=== PATIENT | female | born 1980 | race Caucasian/White ===

== ENCOUNTER → 2017-01-13 | Outpatient (CLI) | payer OTHER ==
[~2017-01-13] MED LIST: AMOXIL500 M1 PO; ASPIRIN81 M2 PO; BACTRIM DS TABL1 TA1 PO; CIPRO HC OTIC S10 ML OT; EC-NAPROSYN500 MG PO; EFFEXOR-XR150 MG PO; FLEXERIL10 M1 PO; FLEXERIL10 MG PO; FLONASE 0.05% N16 G1; FLONASE 0.05% N16 GM; FLONASE ALLERG9.9 ML; IBUPROFEN PO; IBUPROFEN800 MG PO; KEFLEX500 M2 PO; LORTAB 5-325 M1 EACH PO; LOVASTATIN20 M1 PO; METFORMIN HCL1000 M1 PO; METOPROLOL TAR100 MG PO; MIRALAX17 GM PO; NAPROSYN-EC500 M1 PO; NAPROXEN PO; NUCYNTA100 MG PO; OMEPRAZOLE20 M1 PO; OMEPRAZOLE40 MG PO; PERCOCET 7.5-31 EACH PO; PHENERGAN PO; REGLAN10 MG PO; RONDEC TABLET1 TAB PO; VICODIN 5/1 TAB 5/50 PO; VICODIN 5/500 T1 TAB PO; VYVANSE40 MG PO; VYVANSE50 MG PO; ZESTORETIC 20/21 TAB PO; ZITHROMAX PO
--- NOTE | ~2017-01-13 | US6 ---
[facility] A Service of [facility] & [facility] RADIOLOGY TEXT RESULTS PATIENT: NADEEN CHO LOCATION: CGUS : 78 UNIT #: [id number] AGE: [address]: FAVIO MONSON APRN SEX: F ORDER DR: [id number] [facility] [address] [facility]. [place], [place] [address] [id number] O MR#: [id number] Acc #: [id number] NAME: NADEEN CHO : 1980 SEX: F STUDY DATE/TIME: 01/13/2017 10:47 UNIT: CGUS ROOM: STUDY DESCRIPTION: US Abdominal Limited Attending Physician: German Monson M.D. Referring Physician: German Monson M.D. Ordering Physician: German Monson M.D. Primary Care Physician: German Monson M.D. MEDICAL IMAGING REPORT This report is preliminary unless electronic signature is present EXAM Right upper quadrant ultrasound 01/13/2017 HISTORY Abnormally elevated liver enzymes on 12/20/2016. FINDINGS The liver demonstrates an increase in echotexture with attenuation of the ultrasound beam characteristic of fatty infiltration. No cystic or solid mass lesions are seen in the liver. The intra and extrahepatic bile ducts are not dilated. The gallbladder is surgically absent as per patient history. The common duct measures 5 mm. The pancreas is poorly visualized due to overlying bowel gas. The right kidney is normal. IMPRESSION 1. Fatty infiltration of the liver. 2. Surgical absence of the gallbladder. 3. Poor visualization of the pancreas due to overlying bowel gas. Dictated by... Edward Mayers M.D. THIS IS AN ELECTRONICALLY VERIFIED REPORT Edward Mayers M.D. at 01/16/2017 8:14 AM Bear TD: 01/13/2017 17:28 JOB #: [id number] MEDICAL IMAGING REPORT COPY
== END | disposition home or self-care (01) ==
LOC: CGUS 09:32
DX: R74.8 Abnormal levels of other serum enzymes (principal); K76.0 Fatty (change of) liver, not elsewhere classified; Z90.49 Acquired absence of other specified parts of digestive tract
CPT/HCPCS: 76705

== ENCOUNTER 2017-02-04 23:55 | Emergency (ER) | payer OTHER ==
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
[~2017-02-04 23:55] MED LIST changes: -ASPIRIN81 M2 PO; -FLONASE 0.05% N16 G1; -LOVASTATIN20 M1 PO; -METFORMIN HCL1000 M1 PO; -METOPROLOL TAR100 MG PO; -VYVANSE50 MG PO; -ZESTORETIC 20/21 TAB PO
== END 2017-02-05 01:56 | disposition home or self-care (01) ==
LOC: CED 23:55
DX: S06.0X9A Concussion with loss of consciousness of unspecified duration, initial encounter (principal); S16.1XXA Strain of muscle, fascia and tendon at neck level, initial encounter; S00.03XA Contusion of scalp, initial encounter; W22.8XXA Striking against or struck by other objects, initial encounter; Y92.512 Supermarket, store or market as the place of occurrence of the external cause; E11.9 Type 2 diabetes mellitus without complications
CPT/HCPCS: 70450; 72125; 84703; 99284

== ENCOUNTER 2017-02-08 04:18 | Observation (INO) | payer OTHER ==
--- NOTE | ~2017-02-08 | EKG ---
PATIENT: NADEEN CHO UNIT #: [id number] Ventricular Rate: 100 BPM Atrial Rate: 100 BPM P-R Interval: 154 ms QRS Duration: 74 ms Q-T Interval: 360 ms QTC Calculation(Bezet): 464 ms P [place]: 41 degrees Calculated R [place]: 29 degrees Calculated T [place]: 33 degrees Diagnosis Line: Normal sinus rhythm Diagnosis Line: Normal ECG Diagnosis Line: When compared with ECG of 03-AUG-2016 19:42, Diagnosis Line: No significant change was found Diagnosis Line: Confirmed by KATRIN ELIZABETH MD ([id number]) on 02/08/2017 Diagnosis Line: 9:20:37 PM INTERPRETING MD: GLENN HALL
--- NOTE | ~2017-02-08 | TH ---
Unit #: [id number] #: [id number] Patient: NADEEN CHO [id number] [address] [address] [id number] I MR#: [id number] NAME: NADEEN CHO : 1980 SEX: F STUDY DATE/TIME: 02/08/2017 UNIT: CEDOF ROOM: 76046 STUDY DESCRIPTION: Stress nuclear Attending Physician: Venessa Keen M.D. Primary Care Physician: German Monson M.D. CARDIOLOGY REPORT EXAM Stress nuclear and ECG. INDICATION Chest pain, inability to exercise. SUMMARY The patient was given Lexiscan intravenously while at rest. Heart rate increased from 99 to 118 and blood pressure decreased 149/89 to 144/73. The patient did not experience any chest pain. There were nonspecific ST changes in the anterolateral leads both at rest and stress with flattening but no diagnostic ST shifts. There were no dysrhythmias or heart block. Tc-99m Cardiolite, 11.44 and 31.8 mCi, was injected at rest and stress respectively. Appropriate views were obtained. FINDINGS Perfusion images demonstrate intestinal artifact both at rest and stress. There is chest wall attenuation artifact slightly more with stress than at rest. Otherwise, perfusion is normal and equivalent between rest and stress. End-diastolic volume is 88 mL. Ejection fraction 75% with no wall motion abnormalities. There is no significant patient motion noted either at rest or stress. There is no significant lung uptake, LV or RV enlargement. Summed stress score is zero. IMPRESSION 1. Myocardial perfusion scan shows no ischemia or infarction. 2. Normal wall motion with excellent ejection fraction. 3. Normal stress ECG with Lexiscan. Dictated by... Mitchel Darling/heidi TD: 02/09/2017 07:22 JOB #: [id number] Unit #: [id number] #: [id number] Patient: NADEEN CHO CARDIOLOGY REPORT Page 1 of 1 X Manuel Abbasi MD CARDIOLOGY REPORT
--- NOTE | ~2017-02-08 | ST ---
Unit #: [id number] #: [id number] Patient: NADEEN CHO [id number] [address] [address] [id number] I MR#: [id number] NAME: NADEEN CHO : 1980 SEX: F STUDY DATE/TIME: 02/08/2017 UNIT: CEDOF ROOM: 02941 STUDY DESCRIPTION: Stress ECG Attending Physician: Venessa Keen M.D. Primary Care Physician: German Monson M.D. CARDIOLOGY REPORT EXAM Stress ECG. FINDINGS Result text under nuclear order number. Please see this order for result text. Dictated by... Mitchel Darling/heidi TD: 02/09/2017 07:35 JOB #: [id number] CARDIOLOGY REPORT Page 1 of 1 X Manuel Abbasi MD CARDIOLOGY REPORT
--- NOTE | ~2017-02-08 | CT23 ---
[facility] A Service of [facility] & [facility] RADIOLOGY TEXT RESULTS PATIENT: NADEEN CHO LOCATION: CEDOF [id number] : 78 UNIT #: [id number] AGE: [address]: Venessa Keen MD SEX: F ORDER DR: [id number] [facility] [address] [facility]. [place], [place] [address] [id number] I MR#: [id number] Acc #: [id number] NAME: NADEEN CHO : 1980 SEX: F STUDY DATE/TIME: 02/08/2017 4:35 UNIT: CEDOF ROOM: 29727 STUDY DESCRIPTION: CT Angio Neck Attending Physician: Venessa Keen M.D. Ordering Physician: Lester Becerra D.O. Primary Care Physician: Adalberto Monson MEDICAL IMAGING REPORT This report is preliminary unless electronic signature is present EXAM CT angiogram neck. FINDINGS Result text under order number [id number]. Please see this order for result text. Dictated by... Daniel Menjivar M.D. THIS IS AN ELECTRONICALLY VERIFIED REPORT Daniel Menjivar M.D. at 02/08/2017 11:22 AM Marie TD: 02/08/2017 09:11 JOB #: [id number] MEDICAL IMAGING REPORT Page 1 of 1 COPY
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
--- NOTE | ~2017-02-08 | US85 ---
[facility] A Service of [facility] RADIOLOGY TEXT RESULTS PATIENT: NADEEN CHO LOCATION: [facility] [address]86-29 : [birth year] UNIT #: [id number] AGE: [address]: Venessa Keen MD SEX: F ORDER DR: [id number] [facility] [address] [place], [place] [address] [id number] I MR#: [id number] Acc #: [id number] NAME: NADEEN CHO : 1980 SEX: F STUDY DATE/TIME: 02/08/2017 9:34 UNIT: C[facility] ROOM: [id number] STUDY DESCRIPTION: LE Veins Unilat or Ltd Stdy Attending Physician: Venessa Keen M.D. Ordering Physician: Venessa Keen M.D. Primary Care Physician: German Monson M.D. MEDICAL IMAGING REPORT This report is preliminary unless electronic signature is present EXAM Right lower extremity venous duplex, 02/08/2017 HISTORY Right lower extremity pain and swelling for 2 years. Evaluate for deep vein thrombosis. TECHNIQUE Venous ultrasound examination of the right lower extremity was performed using grayscale, spectral Doppler and color flow Doppler imaging. FINDINGS The examination is negative. There is no evidence of right lower extremity deep venous thrombus from the groin to the lower calf. Visualized greater saphenous vein is also patent. IMPRESSION Negative examination. No evidence of right lower extremity deep venous thrombosis. Dictated by... Edward Mayers M.D. THIS IS AN ELECTRONICALLY VERIFIED REPORT Edward Mayers M.D. at 02/09/2017 8:10 AM BULL/debra TD: 02/08/2017 11:11 JOB #: [id number] MEDICAL IMAGING REPORT Page 1 of 1 COPY
--- NOTE | ~2017-02-08 | DS ---
Unit #: [id number] #: [id number] Patient: NADEEN CHO [id number] [address] [address] [id number] Kris MR#: [id number] NAME: NADEEN CHO ROOM: 19554 Age: 37 Sex: F Admission Date: 02/08/2017 : 1980 Discharge Date: Attending Physician: Venessa Keen M.D. Primary Care Physician: Adalberto Monson DISCHARGE SUMMARY PRINCIPAL DIAGNOSES 1. Atypical chest pain. 2. Vertigo secondary to recent head trauma. 3. Diabetes mellitus type 2, non-insulin requiring, uncontrolled with pending hemoglobin A1c. 4. Hypertension. 5. Hyperlipidemia. 6. Probable obstructive sleep apnea. 7. Gastroesophageal reflux disease. 8. Fibromyalgia. 9. Morbid obesity. CONSULTANTS None. PROCEDURES 1. Cardiolite stress test which was negative for ischemia. 2. CT angiogram of the head and neck, which was negative for any vertebral dissection or stroke. CLINICAL HISTORY AND HOSPITAL COURSE Ms. Phipps is a nice 37-year-old female, who presented to the emergency department with dizziness and associated chest pain. Please refer to H and P for further details. Serial troponins in the ER were negative. The patient was subsequently placed in observation for further evaluation. The patient underwent Cardiolite stress test, which was negative for ischemia. She had no abnormalities on telemetry and again troponin negative. Based upon history, I suspect her chest pain was perhaps secondary to anxiety which I discussed with her briefly upon admission and this can be followed up again as an outpatient. In regard to the patient's dizziness, she has now had 2 CT scans of the head within a short period, not demonstrating any stroke. I suspect her intermittent vertigo is secondary to some malpositioning which fell on her. This can be followed up again as an outpatient. The patient's other chronic conditions are remained stable. She does have very poorly-controlled diabetes based upon glucose readings in the hospital. However, when I discussed with her adjusting medications i.e. adding medication in addition to her metformin, the patient opted to follow up with her primary care provider and no new medication was given. Unit #: [id number] #: [id number] Patient: NADEEN CHO DISCHARGE CONDITION Stable. DISCHARGE STATUS Discharged to home. DISCHARGE MEDICATIONS Please refer to med rec. There are no additions to patient's home medications. FOLLOWUP The patient will follow up with her primary care provider in 2 weeks. Dictated by... Venessa Keen M.D. CORA/brandon TD: 02/09/2017 01:17 JOB #: [id number] DISCHARGE SUMMARY Page 1 of 1 X Venessa Keen MD X DISCHARGE SUMMARY
[2017-02-08 03:17] LABS: BASOPHIL% 0.7 % (0-2.5); EOSINOPHIL# 0.1 X10e3 (0-0.7); EOSINOPHIL% 2.6 % (0.0-7.0); HEMATOCRIT 36.3 % (35.0-45.0); HEMOGLOBIN 11.6 gm/dL (12.0-16.0); LYMPHOCYTE# 1.5 X10e3 (1.0-3.5); LYMPHOCYTE% 28.1 % (17.0-45.0); MEAN CELL VOLUME 82.9 FL (83-96); MEAN CORPUSCULAR HEMOGLOBIN 26.4 PG (28-34); MEAN CORPUSCULAR HGB CONC 31.9 g/dL (30-36); MEAN PLATELET VOLUME 8.8 FL (6.5-11.5); MONOCYTE# 0.5 X10e3 (0-1.0); MONOCYTE% 9.9 % (3.0-12.0); NEUTROPHIL# 3.1 X10e3 (1.5-7.1); NEUTROPHIL% 58.7 % (40-75); PLATELET COUNT 216 X10e3 (140-420); RED BLOOD COUNT 4.38 X10e (3.90-5.30); RED CELL DISTRIBUTION WIDTH 15.9 % (11.0-15.5); WHITE BLOOD COUNT 5.3 X10e3 (4.0-10.5)
[2017-02-08 03:20] LABS: DIFF IND NO
[2017-02-08 03:23] LABS: POC - CKMB <1.0 ng/mL (0.0-7.9); POC - TROPONIN <0.05 ng/mL (<=0.05)
[2017-02-08 03:41] LABS: ALBUMIN SERUM 3.6 g/dL (3.5-5.0); BILIRUBIN, DIRECT 0.1 mg/dL (0.0-0.2); BILIRUBIN,INDIRECT 0.7 mg/dL (0.0-0.9); BILIRUBIN,TOTAL 0.8 mg/dL (0.2-2.0); BUN/CREATININE RATIO 13.33; CALCIUM SERUM 8.8 mg/dL (8.4-10.2); CREATININE SERUM 0.6 mg/dL (0.6-1.4); GLOM FILT RATE Estimated 114.8 mL/min (>60); PROTEIN TOTAL SERUM 7.3 g/dL (6.0-8.3)
[2017-02-08 05:07] LABS: URINE SOURCE CLEAN CATCH
[2017-02-08 05:10] LABS: POC - CKMB <1.0 ng/mL (0.0-7.9); POC - TROPONIN <0.05 ng/mL (<=0.05)
[2017-02-08 05:33] LABS: URINE APPEARANCE CLEAR; URINE BILIRUBIN NEG (NEG); URINE BLOOD NEG (NEG); URINE COLOR YELLOW; URINE GLUCOSE >1000 MG/DL (NEG); URINE KETONE NEG (NEG); URINE LEUKOCYTE ESTERASE NEG (NEG); URINE NITRATE NEG (NEG); URINE PROTEIN NEG (NEG); URINE SPECIFIC GRAVITY 1.043 (1.003-1.035)
[2017-02-08 05:43] LABS: CULTURE INDICATED? NO
[2017-02-08 05:53] LABS: AMPHETAMINE NEG (NEG); BARBITURATES NEG (NEG); BENZODIAZEPINES NEG (NEG); COCAINE NEG (NEG); MARIJUANA NEG (NEG); OPIATES NEG (NEG); TRICYCLIC ANTIDEPRESSANTS NEG (NEG); U METHADONE NEG (NEG)
[2017-02-08] MEDS ORDERED: OMEPRAZOLE20 M1 PO (06:36)
[2017-02-08] MEDS ORDERED: NAPROSYN-EC500 M1 PO (06:36)
[2017-02-08] MEDS ORDERED: VYVANSE50 MG PO (06:36)
[2017-02-08] MEDS ORDERED: PERCOCET 7.5-31 EACH PO (06:36)
[2017-02-08] MEDS ORDERED: REGLAN10 MG PO (06:36)
[2017-02-08] MEDS ORDERED: ZESTORETIC 20/21 TAB PO (06:37)
[2017-02-08] MEDS ORDERED: MIRALAX17 GM PO (06:37)
[2017-02-08] MEDS ORDERED: METOPROLOL TAR100 MG PO (06:37)
[2017-02-08] MEDS ORDERED: FLONASE 0.05% N16 G1 (06:37)
[2017-02-08] MEDS ORDERED: METFORMIN HCL1000 M1 PO (06:38)
[2017-02-08 07:25] LABS: CHOLESTEROL 173 mg/dL (0-200); HDL CHOLESTEROL 41 mg/dL (35-95); LDL CHOLESTEROL 89 mg/dL (-130); LDL/HDL RATIO 2 RATIO (0-4); TRIGLYCERIDES 213 mg/dL (10-160)
[2017-02-08] MEDS ORDERED: LOVASTATIN20 M1 PO (07:34)
[2017-02-08] MEDS ORDERED: ASPIRIN81 M2 PO (07:34)
== END 2017-02-08 18:25 | disposition home or self-care (01) ==
LOC: CED 04:18 → CEDOF 06:35
PROVIDERS: Emergency Medicine; Internal Medicine
DX: R07.89 Other chest pain (principal); R42 Dizziness and giddiness; E11.65 Type 2 diabetes mellitus with hyperglycemia; Z79.84 Long term (current) use of oral hypoglycemic drugs; I10 Essential (primary) hypertension; E04.1 Nontoxic single thyroid nodule; I65.29 Occlusion and stenosis of unspecified carotid artery; E78.5 Hyperlipidemia, unspecified; K21.9 Gastro-esophageal reflux disease without esophagitis; M79.7 Fibromyalgia; E66.01 Morbid (severe) obesity due to excess calories; R60.0 Localized edema; Z68.42 Body mass index [BMI] 45.0-49.9, adult; K31.84 Gastroparesis; J30.2 Other seasonal allergic rhinitis; H74.90 Unspecified disorder of middle ear and mastoid, unspecified ear; Z79.82 Long term (current) use of aspirin; Z79.899 Other long term (current) drug therapy; Z98.51 Tubal ligation status; Z86.19 Personal history of other infectious and parasitic diseases; Z98.890 Other specified postprocedural states; Z90.49 Acquired absence of other specified parts of digestive tract; Z87.891 Personal history of nicotine dependence; Z82.49 Family history of ischemic heart disease and other diseases of the circulatory system; Z83.3 Family history of diabetes mellitus; Z84.89 Family history of other specified conditions
CPT/HCPCS: 70450; 70496; 70498; 78452; 80048; 80061; 80076; 80307; 81003; 82553; 82947; 83036; 84484; 84703; 85025; 93005; 93017; 93971; 96361; 96374; 96375; 99285; A9500; G0378; J1100; J1815; J2270; J2405; J2550; J2785; J3490; Q9967

== ENCOUNTER → 2017-04-21 | Outpatient (CLI) | payer OTHER ==
[~2017-04-21] MED LIST changes: +ASPIRIN81 M2 PO; +FLONASE 0.05% N16 G1; +LOVASTATIN20 M1 PO; +METFORMIN HCL1000 M1 PO; +METOPROLOL TAR100 MG PO; +VYVANSE50 MG PO; +ZESTORETIC 20/21 TAB PO
--- NOTE | ~2017-04-21 | US85 ---
[facility] A Service of [facility] RADIOLOGY TEXT RESULTS PATIENT: NADEEN CHO LOCATION: [facility] : [birth year] UNIT #: [id number] AGE: [address]: Luis Carlos Bangura MD SEX: F ORDER DR: [id number] [facility] [address] [place], [place] [address] [id number] O MR#: [id number] Acc #: [id number] NAME: NADEEN CHO : 1980 SEX: F STUDY DATE/TIME: 04/21/2017 15:50 UNIT: [facility] ROOM: STUDY DESCRIPTION: [facility] Unilat or [facility] Stdy Attending Physician: Luis Carlos Bangura M.D. Referring Physician: Luis Carlos Bangura M.D. Ordering Physician: Luis Carlos Bangura M.D. Primary Care Physician: German Monson M.D. MEDICAL IMAGING REPORT This report is preliminary unless electronic signature is present EXAM Left lower extremity venous duplex ultrasound, 04/21/17. HISTORY 37-year-old female with left lower extremity pain, and numbness for a couple of weeks. COMPARISON Bilateral lower extremity venous ultrasound, 06/19/13. FINDINGS Real-time desai-scale, color Doppler, and spectral Doppler analysis of the left lower extremity deep venous system demonstrates normal venous waveforms with normal compressibility, and augmentation throughout. No evidence of left lower extremity deep venous thrombosis. IMPRESSION Negative for left lower extremity DVT. Dictated by... Ismael Posey M.D. THIS IS AN ELECTRONICALLY VERIFIED REPORT Ismael Posey M.D. at 05/01/2017 9:01 AM JAGJIT/shy TD: 04/21/2017 19:00 JOB #: [id number] MEDICAL IMAGING REPORT Page 1 of 1 COPY
== END | disposition home or self-care (01) ==
LOC: CGUS 14:44
DX: I82.402 Acute embolism and thrombosis of unspecified deep veins of left lower extremity (principal)
CPT/HCPCS: 93971

== ENCOUNTER → 2017-08-02 | Outpatient (CLI) | payer OTHER ==
--- NOTE | ~2017-08-02 | MR2 ---
[facility] A Service of [facility] RADIOLOGY TEXT RESULTS PATIENT: NADEEN CHO [facility] : [birth year] UNIT #: [id number] AGE: [address]: Joyce Shirley APRN SEX: F ORDER DR: [id number] [facility] [address] [place], [place] [address] [id number] O MR#: [id number] Acc #: [id number] NAME: NADEEN CHO : 1980 SEX: F STUDY DATE/TIME: 08/02/2017 16:50 UNIT: [facility] ROOM: STUDY DESCRIPTION: MR Abdomen WWo Cont Attending Physician: Joyce Shirley Aprn Referring Physician: Joyce Shirley Aprn Ordering Physician: Joyce Shirley Aprn Primary Care Physician: German Monson M.D. MRI CENTER REPORT This report is preliminary unless electronic signature is present. EXAM MRI abdomen with and without contrast INDICATION Cirrhosis diagnosed 3 months ago. Patient reports upper abdominal pain for the past 5 months. PROCEDURE Multiplanar, multisequence MR imaging of the abdomen prior to and following 20 mL of MultiHance. COMPARISON CT from 04/04/2016 FINDINGS ABDOMEN WITHOUT CONTRAST: Liver enlarged measuring 20.8 cm. The liver is not frankly cirrhotic in morphology. The spleen is enlarged measuring 14 cm in length. There is no ascites. Previous cholecystectomy. No bile duct dilation. The kidneys, adrenal glands, pancreas and bowel loops have normal signal. ABDOMEN WITH CONTRAST: Hepatic vessels are patent. There is no liver mass. No abnormal enhancement in the abdomen. IMPRESSION 1. Hepatosplenomegaly. 2. Liver is not frankly cirrhotic in morphology. The patient had a liver biopsy in April 2017. Correlate with biopsy results. 3. No liver mass and the hepatic vessels are patent. Dictated by... Franklyn Patel M.D. [facility] A Service of [facility] RADIOLOGY TEXT RESULTS PATIENT: NADEEN CHO [facility] : [birth year] UNIT #: [id number] AGE: [address]: Joyce Shirley APRN SEX: F ORDER DR: THIS IS AN ELECTRONICALLY VERIFIED REPORT Franklyn Patel M.D. at 08/04/2017 2:39 PM Bandar TD: 08/03/2017 09:42 JOB #: [id number] MRI CENTER REPORT Page 1 of 1 COPY
[2017-08-02 17:11] LABS: POC - CREATININE 0.77 mg/dL (0.44-1.03); POC - GFR >60.0 mL/min (>60)
== END | disposition home or self-care (01) ==
LOC: CMRI 14:48
PROVIDERS: Nurse Practitioner
DX: K75.81 Nonalcoholic steatohepatitis (NASH) (principal); R16.2 Hepatomegaly with splenomegaly, not elsewhere classified
CPT/HCPCS: 74183; 82565; A9577